=== PATIENT | female | born 1995 | race Caucasian/White ===

== ENCOUNTER 2017-08-23 15:43 | Emergency (ER) | payer MEDICAID ==
--- NOTE | 2017-08-23 16:17 | PD ---
HPI Chief Complaint decreased movement and leakage of fluid Date Seen: August 23, 2017 Time Seen: 16:17 Travel History International Travel<30 Days: No Contact w/Intl Traveler<30Days: No History of Present Illness HPI Patient is a 21-year-old female at 38 weeks gestation presented to OB triage due to complaints of decreased movement and leakage of fluid. Patient stated that since yesterday she has noticed decreased movement, today she says she has had felt the baby move only twice. While being monitored in OB triage patient reported movement. Patient also reports that she has had leakage of fluid for the past 4 days. Denies vaginal bleeding. Patient endorses on and off contractions. Weeks Gestation: 38 Para: 0 : 2 Miscarriage: 1 History Past Medical History Medical History: Denies Significant Hx Obstetric History Obstetric History No complications with this thus far. Patient recently moved to [place]. 1 miscarriage at 3 weeks Past Surgical History Surgical History: No Previous Surgery Family History Family History: Negative Social History Alcohol Use: No Tobacco Use: No Substance Abuse: No Allergies-Medications (Allergen,Severity, Reaction): Coded Allergies: No Known Allergies (Verified Allergy, Unknown, 08/23/17) Home Meds Reported Medications Vit,Calc76/Iron/Folic (Pnv 29-1 Tablet) 29 Mg Iron-1 Mg Tablet, 1 TAB PO DAILY 08/23/17 Review of Systems Except as stated in HPI: all other systems reviewed are Neg Physical Exam Narrative GENERAL: Well-nourished, well-developed patient. SKIN: Warm and dry. HEAD: Normocephalic and atraumatic. EYES: No scleral icterus. No injection or drainage. ENT: No nasal drainage noted. Mucous membranes pink. Airway patent. NECK: Supple, trachea midline. No JVD. CARDIOVASCULAR: Regular rate and rhythm without murmurs, gallops, or rubs. RESPIRATORY: Breath sounds equal bilaterally. No accessory muscle use. ABDOMEN/GI: Abdomen soft, non-tender, bowel sounds present, no rebound, no guarding Gravid to 38 weeks size GENITOURINARY: External Genitalia: intact and normal in appearance Cervix: Posterior Dilatation:1 Effacement: 60-70 Station: -2 Membranes: intact Uterine Contractions: none FHT's: Category: 1 Baseline: 150 Reactive: yes Variability:moderate Decels: none EXTREMITIES: No cyanosis or edema. BACK: Nontender without obvious deformity. No CVA tenderness. NEUROLOGICAL: Awake and alert. Motor and sensory grossly within normal limits. Five out of 5 muscle strength in all muscle groups. Normal speech. Data Data Vital Signs Reviewed: Yes Group B Strep: Negative MDM Medical Record Reviewed: Yes Plan Patient is a 21-year-old female at 38 weeks gestation presented to OB triage due to complaints of decreased movement and leakage of fluid. IUP at 38 weeks gestation. 1. category 1, NST reassuring 2. pt reports resumption of movement 3. Amnisure test negative 4. cervical check 2, no contractions on monitor 3. discharge home. Dw Ob hospitalist Diagnosis Diagnosis: Primary Impression: 38 weeks gestation of Additional Impressions: Decreased movement Fluid loss Disposition: 01 DISCHARGE HOME Condition: Stable Patient Instructions: General Instructions, Early Labor Signs (ED), Movement (ED) Izabella Swanson MD, R1 August 23, 2017 16:17
[2017-08-23] MEDS ORDERED: PREN1TAB45 PO (16:41)
== END 2017-08-23 16:41 | disposition home or self-care (01) ==
LOC: HOBED 15:43
DX: O36.8130 Decreased fetal movements, third trimester, not applicable or unspecified (principal); Z3A.38 38 weeks gestation of pregnancy
CPT/HCPCS: 59025; 84112